=== PATIENT | female | born 1955 | race Hispanic/Latino ===

== ENCOUNTER → 2024-06-02 | Outpatient (CLI) | payer MEDICARE ==
--- NOTE | 2024-06-02 12:29 | HMCIMG ---
US ABDOMINAL COMPLETE REASON: Abnormal levels of other serum enzymes COMPARISON: None FINDINGS: There is normal sonographic appearance of the liver. There are no focal mass lesions. The liver is not enlarged.There is a normal-appearing gallbladder. There is 1.9 cm cyst left kidney. Kidneys appear otherwise normal in size and appearance. There is no evidence of mass, stone or hydronephrosis. Spleen and common duct appear normal. Aorta and inferior vena cava appear normal. The pancreas appears normal as well. IMPRESSION: 1. 1.9 cm cyst left kidney. 2. Otherwise normal abdomen sonogram.
== END | disposition home or self-care (01) ==
LOC: RAH 05-24 10:42 → EDBD 05-24 11:30 → RAH 08:00
PROVIDERS: ATTEND Family Medicine
DX: N28.1 Cyst of kidney, acquired (principal); R74.8 Abnormal levels of other serum enzymes
CPT/HCPCS: 76700